=== PATIENT | male | born 1990 | race Caucasian/White ===

== ENCOUNTER 2020-07-06 18:18 | Emergency (ER) | payer SELFPAY ==
[2020-07-06 18:28] VITALS: BP 115/76; PULSE 86; TEMP 98; BMI 29.9
[2020-07-06] MEDS ORDERED: METHOCARBAMOL 500 MG TABLET PO ONE (18:52)
[2020-07-06] MEDS ORDERED: KETOROLAC TROMETHAMINE 30 MG/1 ML VIAL IM ONE (18:52)
[2020-07-06] MEDS ORDERED: METHOCARBAMOL 500 MG TABLET ONE (19:01)
[2020-07-06] MEDS ORDERED: KETOROLAC TROMETHAMINE 30 MG/1 ML VIAL ONE (19:01)
== END 2020-07-06 19:18 | disposition home or self-care (01) ==
LOC: JERFT 18:18
PROC: 3E0233Z Introduction of Anti-inflammatory into Muscle, Percutaneous Approach (ICD-10-PCS; principal; 2020-07-06)
DX: S29.011A Strain of muscle and tendon of front wall of thorax, initial encounter (principal)
CPT/HCPCS: 71046-TC-FY; 99284-25